=== PATIENT | female | born 1950 | race Caucasian/White ===

== ENCOUNTER 2017-10-31 06:15 | Day surgery (SDC) | payer MEDICARE ==
[~2017-10-31 06:15] MED LIST: ACETTAB3 OR; AVELOX400 MG OR; BACTRIM DS1 TAB PO; CENTRUM PO; CEPHALEXIN500 MG PO; DOXYCYCL HYC100 MG PO; FIORICET PO; FLEXERIL OR; IMODIUM OR; KEPPRA XR500 MG PO; LEVOTHYROXIN25 MC1 PO; LEVOTHYROXIN50 MCG PO; LIPITOR10 M1 PO; LOPID600 MG PO; LORTAB 10-325 M1 TAB PO; LORTAB OR; NAPROSYN500 MG OR; NEXIUM40 M1 PO; OSCAL 500/1 TAB PO; OXYCONTIN10 MG PO; PENICILLN VK500 MG OR; PERCOCET 5/325M1 TAB PO; PREMARIN0.625 MG PO; PROMETHAZINE25 MG OR; PROTONIX40 MG PO; RESTORIL15 MG PO; ROXICODONE5 MG PO; SYNTHROID PO; TESSALON200 MG OR; TRAMADOL HCL50 MG OR; TRICOR145 MG OR; ZONISAMIDE50 MG PO
[2017-10-31 09:01] VITALS: BP 117/72
== END 2017-10-31 09:10 | disposition home or self-care (01) ==
LOC: ENDO 06:15
PROVIDERS: ATTEND Surgery
PROC: 0DJD8ZZ Inspection of Lower Intestinal Tract, Via Natural or Artificial Opening Endoscopic (ICD-10-PCS; principal; 2017-10-31)
DX: Z12.11 Encounter for screening for malignant neoplasm of colon (principal); G93.9 Disorder of brain, unspecified; K64.8 Other hemorrhoids; Q43.8 Other specified congenital malformations of intestine; Z80.0 Family history of malignant neoplasm of digestive organs
CPT/HCPCS: G0104

== ENCOUNTER 2020-08-28 05:51 | Day surgery (SDC) | payer MEDICARE ==
[~2020-08-28] VITALS: Ht 157.5 cm; Wt 63.5 kg
[~2020-08-28 05:51] MED LIST changes: +GABAPENTIN100 MG PO; +LISINOPRIL20 MG PO; +TYLENOL500 MG PO
[2020-08-28 09:19] VITALS: BP 124/58
--- NOTE | 2020-09-03 14:47 | NUR ---
PER PHYSICIAN, PATIENT NOTIFIED OF NEGATIVE COLONOSCOPY RESULTS. REPEAT COLONOSCOPY X 5 YEARS OR SOONER IF NEEDED. NOTE, OPERATIVE REPORT, AND RESULTS FORWARDED TO PRIMARY CARE FOR CONTINUITY OF CARE. PATIENT VERBALIZED UNDERSTANDING OF INFORMATION GIVEN, THANKED US FOR MEDICAL CARE, AND STATED WILL RETURN IN FIVE YEARS.
== END 2020-08-28 09:10 | disposition home or self-care (01) ==
LOC: ENDO 05:51 → ORM 08:00 → ENDO 08:00
PROVIDERS: ATTEND Surgery
PROC: 0DBF8ZX Excision of Right Large Intestine, Via Natural or Artificial Opening Endoscopic, Diagnostic (ICD-10-PCS; principal; 2020-08-28)
DX: D12.2 Benign neoplasm of ascending colon (principal); K57.30 Diverticulosis of large intestine without perforation or abscess without bleeding; Q43.9 Congenital malformation of intestine, unspecified; I10 Essential (primary) hypertension; Z80.0 Family history of malignant neoplasm of digestive organs

== ENCOUNTER 2021-01-15 10:19 | Emergency (ER) | payer MEDICARE ==
[~2021-01-15] VITALS: Ht 157.5 cm; Wt 61.0 kg
[2021-01-15 11:15] VITALS: BP 185/83
== END 2021-01-15 11:05 | disposition home or self-care (01) ==
LOC: ED 10:19
PROC: 0HQGXZZ Repair Left Hand Skin, External Approach (ICD-10-PCS; principal; 2021-01-15)
DX: S61.012A Laceration without foreign body of left thumb without damage to nail, initial encounter (principal); I10 Essential (primary) hypertension; W26.0XXA Contact with knife, initial encounter; Y93.E9 Activity, other interior property and clothing maintenance; Y92.009 Unspecified place in unspecified non-institutional (private) residence as the place of occurrence of the external cause